=== PATIENT | female | born 1970 | race Caucasian/White ===

== ENCOUNTER 2016-12-12 14:52 | Inpatient (IN) | payer OTHER ==
[~2016-12-12] VITALS: Ht 156.2 cm; Wt 89.5 kg
--- NOTE | ~2016-12-12 | CO ---
ADMIT: 12/12/2016 RM/LOC: 501 [facility] MR#: [id number] [address] [address] ROSSI ESTRADA [address] [place] [address] Consultation SEX: F AGE: 46 : 1970 DATE OF CONSULTATION: 12/12/2016 ATTENDING PHYSICIAN: Yane Elloitt MD CONSULTING PHYSICIAN: Roman Jeffrey MD REASON FOR CONSULT: Spinal cord stimulator infection. CHIEF COMPLAINT: Fever. HISTORY OF PRESENT ILLNESS: Ms. Estrada returned today. I was called by Dr. Black that she had some erythema and swelling at the site and fever. She saw Dunia in clinic and then was seen urgently by Dr. Elliott. She has had a fever. No chills. She has pain and fluid collection at the site of her spinal cord stimulator. PAST MEDICAL HISTORY: Hypertension, tobacco use, neuropathic pain in the lower extremities, prior MRSA infection with removal of spinal cord stimulator and presumed sterilization prior to reimplantation, which was just a few weeks ago. SOCIAL HISTORY: She lives with her . Smokes a pack a day. She does have a history of abuse of narcotic medications. REVIEW OF SYSTEMS: Complete review of systems was obtained with pertinent positives noted in the HPI. ALLERGIES: NONE KNOWN. MEDICATIONS: 1. Lexapro. 2. Colace. 3. MS Contin. 4. Senokot. 5. Synthroid. 6. Zestril. PHYSICAL EXAMINATION: VITAL SIGNS: Temperature 100.5 degrees, 84 beats, 18 respiratory rate, blood pressure 124/75, and saturation 92% on room air. GENERAL: She is awake, alert, and oriented x4. NEURO: She moves all extremities with 5/5 strength. SKIN: She has an erythematous fluctuant right sided spinal cord stimulator internal pulse generator site erythematous, warm wound with some minor erythema at the spinal implant site. ASSESSMENT AND PLAN: Ms. Estrada is a very unfortunate lady, she should have been sterilized based on treatment protocol and well-healed and had a replacement of her spinal cord stimulator and now here we are couple of weeks later with apparent infection. Per Dr. Elliott's request I aspirated the ADMIT: 12/12/2016 RM/LOC: 501 [facility] MR#: [id number] [address] [address] ROSSI ESTRADA R [address] [place] [address] Consultation SEX: F AGE: 46 : 1970 pocket with serosanguineous, but probably purulent appearing fluid obtained from the IPG pocket. Per discussion with Dr. Elliott, if it is MRSA I will explant this, and if it is not, there is a chance that we may be able to save the implant. Hopefully, we will be able to treat her with antibiotics, but I am more than ready to explant this at any time. PROCEDURE NOTE: After discussing with the patient getting her verbal consent for aspiration. With her understanding of the procedure, I utilized iodine over both incisions. There was fluctuance over the right internal pulse generator incision. When utilizing sterile technique, I aspirated 20 mL of purulosanguineous appearing fluid and sterilely capped this and handed this to the patient's nurse for transit to lab. This was done after the needle was withdrawn. There is no sign of complication or bleeding. Roman Jeffrey MD/ gypsy JOB #: [id number] CC: Yane Elliott MD, Attending Physician Sahil Alvarez DO, Family Physician
[~2016-12-12 14:52] MED LIST: ADVIL DPS200 MG PO; BACITRACIN--O.0.9 GM TP; COLACE-DPS100 MG PO; HYDROCODONE 10M10 MG PO; LEXAPRO DPS20 MG PO; NEURONTIN DPS300 MG PO; OPANA ER10 MG PO; PROAIR RESPICL90 MCG IH; SYNTHROID DPS0.1 MG PO; TYLENOL DPS325 MG PO; VALIUM-DPS5 MG PO; VIBRAMYCIN-DPS100 M2 PO; ZESTRIL DPS5 MG PO
[2016-12-16] MEDS ORDERED: HABITROL DPS21 MG TD (13:38)
[2016-12-16] MEDS ORDERED: BETADINE DPS1 GM TP (13:39)
[2016-12-16] MEDS ORDERED: CUBICIN500 MG IV (13:40)
--- NOTE | 2016-12-18 12:59 | OR ---
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 POSTOPERATIVE DIAGNOSIS: Methicillin-resistant Staphylococcus aureus and recurrent infection at spinal cord stimulator site at both the thoracic laminectomy although predominantly appeared to be originating at the flank pocket site with need for explantation for sterilization and treatment. PROCEDURE: Spinal cord stimulator explant for infection with irrigation and debridement of the area that it was implanted. DESCRIPTION OF PROCEDURE: After gaining informed consent, the patient was taken to the operative theater, placed under general endotracheal anesthesia in supine position and turned prone on a Leno table. All pressure points were purposely padded prior to performing the procedure. She was prepped and draped in usual sterile fashion. A time-out was utilized to ascertain the correct site and side of surgery as well as other pertinent patient historical information. Counts were obtained at the beginning and at the end of the case with no change betwixt the two. Antibiotics were given within 1 hour of incision. At the time of rolling and positioning, the right wound opened laterally and a large amount of purulent drainage came out. At this point, we milked any additional amount out prior to prepping and draping the patient. She was then prepped and draped in usual sterile fashion. The incisions were opened at both spots. Large amount of purulence was surrounding the spinal cord stimulator, internal pulse generator, and there was a limited amount around the paddle lead. These were both explanted and then 1 L of bacitracin irrigant was used about 1/3 in the thoracic incision with extreme caution not ADMIT: 12/12/2016 RM/LOC: 501 [facility] MR#: [id number] [address] [address] ROSSI ESTRADA [address] [place] [address] Operative/Delivery Room Report SEX: F AGE: 46 : 1970 to lavage over top of the spinal canal and then, the other 2/3 being used in the pocket. A 1 g of vancomycin powder was brought into the field, 1/3 of it was placed in the thoracic site and 2/3 were placed within the pocket, this was then mixed in and then the wounds were closed with interrupted vertical mattress utilizing 2-0 nylon. COMPLICATIONS: None. ESTIMATED BLOOD LOSS: Charted. SPECIMEN: Spinal cord stimulator. Previous cultures had been obtained, no new cultures were obtained intraoperatively. Roman Jeffrey MD/ gypsy JOB #: [id number] CC: Yane Elliott MD, Attending Physician Sahil Alvarez DO, Family Physician
--- NOTE | 2016-12-29 14:00 | HP ---
ADMIT: 12/12/2016 RM/LOC: 501 [facility] MR#: [id number] [address] [address] ROSSI ESTRADA [address] [place] [address] History and Physical SEX: F AGE: 46 : 1970 DATE OF SERVICE: REASON FOR ADMISSION: Right buttock spinal cord generator site insertion infection. HISTORY OF PRESENT ILLNESS: Ms. Estrada is a 46-year-old woman with history of neuropathy and chronic pain, who underwent spinal cord stimulator placed in August 27, 2016 and T8-T9 laminectomy. It was subsequently infected by methicillin-resistant Staphylococcus aureus infection. Hence, it was explanted in September. She was subsequently treated with vancomycin and doxycycline, and her incision had healed well. She got a repeat spinal cord stimulator insertion on December 05, 2016. Two days after insertion, started noticing increased fullness and pain on her right buttock insertion site. She also reported fevers of more than 100, but less than 101, hence did not call the doctor. Today, she was seen by Dr. Black and Dunia Rebollar and noted to have erythema and tenderness and significant swelling at the right buttock insertion site. In the clinic, her temperature was 101.3, and she reported associated chills along with it. She denies any chest pain, trouble breathing, and reports mild diarrhea. PAST MEDICAL HISTORY: Anxiety, cervical spondylosis with myelopathy, chronic pain, hypertension, tobacco use, cervical spinal fusion, and lumbosacral radiculopathy. ALLERGIES: NO KNOWN DRUG ALLERGIES. HOME MEDICATIONS: Reviewed. SOCIAL HISTORY: She lives at home with her . Smokes 1 to 1/2 pack per day. Denies any alcohol or recreational drug use. REVIEW OF SYSTEMS: A 10-point review of systems negative except as mentioned in HPI. FAMILY HISTORY: Diabetes mellitus in her grandmother. REVIEW OF SYSTEMS: Ten-point review of systems negative except as mentioned in HPI. PHYSICAL EXAMINATION: VITAL SIGNS: Current temperature is 101.3, heart rate 94, respirations 14, blood pressure 134/80, and 98% on room air. GENERAL: In no acute distress. HEENT. Head is normocephalic and atraumatic. Extraocular movements intact. LYMPHATICS: No palpable anterior/posterior cervical or supraclavicular lymphadenopathy. CHEST: Decreased breath sounds bilaterally. No wheezes, rales, or rhonchi. ABDOMEN: Soft, nontender, and nondistended. Active bowel sounds. SKIN: No rash noted on exposed skin. MUSCULOSKELETAL: The back incision site has mild surrounding erythema and ADMIT: 12/12/2016 RM/LOC: [address] [place] [address] MR#: [id number] [address] [place] [id number] [place] [address] History and Physical SEX: F AGE: 46 : 1970 mild tenderness to palpation. No drainage noted. The right buttock incision site has surrounding erythema and increased swelling and tenderness and fluctuance noted at the posterior aspect. There is no active drainage at this time. ASSESSMENT/PLAN: 1. Right buttock generator site infection and questionable abscess. Given her fever and chills, I will check blood culture and start her on IV ceftaroline 600 mg twice daily. I discussed with Dr. Jeffrey, and we will plan to aspirate the fluid and culture it. We will decide further management upon the type of bacteria found. If she grows MRSA again which is most likely, she will need explantation of the spinal cord stimulator. 2. Tobacco use. 3. History of prior methicillin-resistant Staphylococcus aureus infection at the stimulator insertion site. 4. Chronic pain. 5. Hypertension. Yane Elliott MD/ gypsy BAI: 12/12/2016 15:22:18 JOB #: [id number] CC: Yane Elliott MD, Attending Physician Sahil Alvarez DO, Family Physician
--- NOTE | 2017-03-09 11:17 | DS ---
ADMIT: 12/12/2016 RM/LOC: 501 [facility] MR#: [id number] [address] [address] ROSSI ESTRADA [address] [place] [address] [place] [address] General Discharge Summary SEX: F AGE: 46 : 1970 CORRECTED: 03/06/2017 0748 [facility] ADMISSION DATE: 12/12/2016 DISCHARGE DATE: 12/15/2016 PRIMARY DISCHARGE DIAGNOSES: 1. Right buttock spinal cord generator site infection by methicillin- resistant Staphylococcus aureus. 2. Cervical spondylosis with myelopathy. 3. Chronic pain. 4. Hypertension. 5. Cervical spine fusion. 6. Tobacco use. HOSPITAL COURSE: Ms. Estrada is a 46-year-old woman, who underwent spinal cord stimulator insertion on 12/05/2016 after prior treatment for MRSA infection, and explantation of the first stimulator. Two days after incision, she started noticing increased fullness and pain in her right buttock and presented to the clinic with fever. She was taken to OR by Dr. Jeffrey and spinal cord stimulator was explanted with irrigation and debridement of the area and repeat cultures grew MRSA. There was large amount of purulence around the spinal cord stimulator site. She was started on ceftaroline and later changed to daptomycin. Her condition was stable throughout the hospital course. She was discharged on daptomycin 6 mg/kg for 2 weeks until 12/29/2016, and she will follow up in [facility]. FOLLOWUP: Followup appointments with Infectious Disease in Wound Clinic, and Dr. Jeffrey. DISCHARGE MEDICATIONS: Please refer to the discharge med list. Yane Elliott MD/ gypsy JOB #: [id number] CC: Yane Elliott MD, Attending Physician Sahil Alvarez DO, Family Physician CORRECTED: 03/06/2017 0748 [facility]
== END 2016-12-15 19:30 | disposition home or self-care (01) | DRG 41 ==
LOC: WOR 14:52 → 5MS 14:52
PROVIDERS: ADMIT Internal Medicine Infectious Disease
PROC: 0WPL0YZ Removal of Other Device from Lower Back, Open Approach (ICD-10-PCS; principal; 2016-12-14)
PROC: 0WPF0YZ Removal of Other Device from Abdominal Wall, Open Approach (ICD-10-PCS; principal; 2016-12-14)
PROC: 0JD80ZZ Extraction of Abdomen Subcutaneous Tissue and Fascia, Open Approach (ICD-10-PCS; principal; 2016-12-14)
PROC: 0JD70ZZ Extraction of Back Subcutaneous Tissue and Fascia, Open Approach (ICD-10-PCS; principal; 2016-12-14)
DX: T85.738A Infection and inflammatory reaction due to other nervous system device, implant or graft, initial encounter (principal); M47.12 Other spondylosis with myelopathy, cervical region; I10 Essential (primary) hypertension; F41.9 Anxiety disorder, unspecified; G89.29 Other chronic pain; M54.16 Radiculopathy, lumbar region; F17.210 Nicotine dependence, cigarettes, uncomplicated; Z86.14 Personal history of Methicillin resistant Staphylococcus aureus infection; Z98.1 Arthrodesis status